=== PATIENT | female | born 1980 | race Hispanic/Latino ===

== ENCOUNTER 2022-08-03 01:55 | Emergency (ER) | payer OTHER ==
[~2022-08-03] VITALS: Ht 165.1 cm; Wt 144.2 kg
[2022-08-03] MEDS ORDERED: LIDOCAINE HCL 1% 20 ML VIAL INJ SCH (03:00)
[2022-08-03 04:02] VITALS: BP 114/74
[2022-08-03] MEDS ORDERED: CHLO118L4 TP (04:22)
== END 2022-08-03 04:36 ==
LOC: EDH 01:55
DX: S01.511A Laceration without foreign body of lip, initial encounter (principal); F29 Unspecified psychosis not due to a substance or known physiological condition; F20.9 Schizophrenia, unspecified; F31.9 Bipolar disorder, unspecified; F41.9 Anxiety disorder, unspecified; W18.2XXA Fall in (into) shower or empty bathtub, initial encounter; Y93.E1 Activity, personal bathing and showering; Y92.091 Bathroom in other non-institutional residence as the place of occurrence of the external cause; Y99.8 Other external cause status
CPT/HCPCS: 12013; 99282